=== PATIENT | female | born 1990 | race Caucasian/White ===

== ENCOUNTER 2016-08-20 21:29 | Emergency (ER) | payer OTHER ==
[~2016-08-20] VITALS: Ht 157.4 cm; Wt 100.2 kg
[~2016-08-20 21:29] MED LIST: ALBUTEROL2.5 MG/0.5 INH; ANAPROX DS550 MG PO; CLARITIN-D 12 H1 TAB PO; DUONEB 3 MG/3 ML3 M1 INH; MEDROL DOSEPAK4 MG PO; NKHM; PHENERGAN W/ DE30 ML PO; PREDNICOT10 MG PO; PREDNICOT20 MG PO; PREDNISONE10 MG PO; PROAIR HFA0.09 MG/AC INH; ROBITUSSIN AC 110 ML PO; VENTOLIN H0.09 MG/AC INH; VIBRAMYCIN100 MG PO; ZITHROMAX250 MG PO
[2016-08-20] MEDS ORDERED: PRENATAL1 TA3 PO (21:43)
[2016-08-20 22:23] LABS: BASO % 0.2 % (0.0-1.0); EOS # 0.3 10*3/uL (0.0-0.4); EOS % 2.3 % (1.0-4.0); HEMATOCRIT 31.5 % (37.0-47.0); HEMOGLOBIN 10.6 g/dl (12.0-16.0); IG # 0.1 10*3/uL (0.0-0.1); LYMPH # 2.2 10*3/uL (1.3-4.4); LYMPH % 19.1 % (27.0-41.0); MEAN CELL VOLUME 94.6 fl (81.0-99.0); MEAN CORPUSCULAR HGB 31.8 pg (27.0-31.0); MEAN CORPUSCULAR HGB CONC 33.7 g/dl (33.0-37.0); MEAN PLATELET VOLUME 11.8 fl (9.6-12.3); MONO # 0.6 10*3/uL (0.1-1.0); NEUT # 8.4 10*3/uL (2.3-7.9); PLATELET COUNT AUTOMATED 115 10*3/uL (130-400); RED BLOOD COUNT 3.33 10*6/uL (4.10-5.10); RED CELL DISTRI WIDTH 13.3 % (0-14.5); WHITE BLOOD COUNT 11.5 10*3/uL (4.8-10.8)
[2016-08-20 22:33] LABS: BUN 7 mg/dl (7-24); CARBON DIOXIDE 24 mmol/L (21-32); CHLORIDE 109 mmol/L (98-107); EST GLOM FILT AFRICAN AMERICAN > 60 ml/min; GLUCOSE 88 mg/dL (65-99); POTASSIUM 3.6 mmol/L (3.5-5.1); SODIUM 142 mmol/L (136-145)
[2016-08-20 22:46] LABS: BILIRUBIN NEGATIVE (NEGATIVE); BLOOD NEGATIVE (NEGATIVE); CLARITY SL CLOUDY (CLEAR); COLOR YELLOW (YELLOW); GLUCOSE NEGATIVE (NEGATIVE); KETONE TRACE (NEGATIVE); LEUKO ESTERASE 1+ (NEGATIVE); NITRITE NEGATIVE (NEGATIVE); PROTEIN TRACE (NEGATIVE); SPECIFIC GRAVITY 1.025 (1.005-1.030)
[2016-08-20] MEDS ORDERED: MACROBID100 M1 PO (22:54)
[2016-08-20 23:04] LABS: BACTERIA 1+; CALCIUM OXALATE CRYSTALS 1+; URINE REFLEX COMMENT YES (NO)
== END 2016-08-20 23:07 | disposition home or self-care (01) ==
LOC: ED 21:29
PROVIDERS: Student in an Organized Health Care Education/Training Program
DX: O23.42 Unspecified infection of urinary tract in pregnancy, second trimester (principal); R82.71 Bacteriuria; F17.200 Nicotine dependence, unspecified, uncomplicated; Z79.899 Other long term (current) drug therapy; Z3A.24 24 weeks gestation of pregnancy

== ENCOUNTER 2016-11-12 01:33 | Emergency (ER) | payer OTHER ==
[~2016-11-12] VITALS: Ht 157.4 cm; Wt 54.9 kg
[~2016-11-12 01:33] MED LIST changes: +MACROBID100 M1 PO; +PRENATAL1 TA3 PO
[2016-11-12] MEDS ORDERED: AMOXICILLIN500 M2 PO (01:58)
== END 2016-11-12 02:22 | disposition home or self-care (01) ==
LOC: ED 01:33
DX: J02.9 Acute pharyngitis, unspecified (principal); F17.200 Nicotine dependence, unspecified, uncomplicated

== ENCOUNTER 2016-12-28 02:02 | Emergency (ER) | payer OTHER ==
[~2016-12-28 02:02] MED LIST changes: +AMOXICILLIN500 M2 PO
[2016-12-28 02:48] LABS: BASO % 0.2 % (0.0-1.0); EOS # 0.3 10*3/uL (0.0-0.4); EOS % 2.8 % (1.0-4.0); HEMATOCRIT 36.3 % (37.0-47.0); HEMOGLOBIN 11.8 g/dl (12.0-16.0); LYMPH % 18.1 % (27.0-41.0); MEAN CELL VOLUME 92.8 fl (81.0-99.0); MEAN CORPUSCULAR HGB 30.2 pg (27.0-31.0); MEAN CORPUSCULAR HGB CONC 32.5 g/dl (33.0-37.0); MEAN PLATELET VOLUME 11.1 fl (9.6-12.3); MONO # 0.5 10*3/uL (0.1-1.0); MONO % 4.2 % (3.0-9.0); NEUT # 8.3 10*3/uL (2.3-7.9); NEUT % 74.3 % (47.0-73.0); PLATELET COUNT AUTOMATED 142 10*3/uL (130-400); RED BLOOD COUNT 3.91 10*6/uL (4.10-5.10); RED CELL DISTRI WIDTH 13.4 % (0-14.5); WHITE BLOOD COUNT 11.2 10*3/uL (4.8-10.8)
[2016-12-28 03:03] LABS: ALBUMIN 3.4 gm/dl (3.1-4.5); ALKALINE PHOSPHATASE 51 U/L (45-117); BUN 11 mg/dl (7-24); CHLORIDE 111 mmol/L (98-107); CREATININE 0.84 mg/dL (0.55-1.02); LIPASE 155 U/L (73-393); POTASSIUM 3.3 mmol/L (3.5-5.1); SGOT/AST 14 IU/L (3-35); SGPT/ALT 23 U/L (12-78); SODIUM 143 mmol/L (136-145); TOTAL PROTEIN 6.7 gm/dL (6.4-8.2)
[2016-12-28 03:06] LABS: ACT PARTIAL THROMBO TIME 23.9 SECONDS (20.8-31.5); TROPONIN I < 0.015 ng/ml (<0.045)
[2016-12-28] MEDS ORDERED: AVPAK AZITHROM250 M1 PO (03:16)
== END 2016-12-28 03:31 | disposition home or self-care (01) ==
LOC: ED 02:02
PROVIDERS: Student in an Organized Health Care Education/Training Program
DX: J06.9 Acute upper respiratory infection, unspecified (principal); F17.200 Nicotine dependence, unspecified, uncomplicated

== ENCOUNTER 2017-07-22 18:18 | Emergency (ER) | payer OTHER ==
[~2017-07-22] VITALS: Wt 106.6 kg
[~2017-07-22 18:18] MED LIST changes: +AVPAK AZITHROM250 M1 PO
[2017-07-22] MEDS ORDERED: AMOXICILLIN500 M2 PO (18:59)
[2017-07-22] MEDS ORDERED: PROAIR HFA8.5 GM INH (18:59)
[2017-07-22] MEDS ORDERED: ZYRTEC10 MG PO (18:59)
== END 2017-07-22 19:35 | disposition home or self-care (01) ==
LOC: ED 18:18
DX: J01.90 Acute sinusitis, unspecified (principal); J45.909 Unspecified asthma, uncomplicated; Z76.0 Encounter for issue of repeat prescription; Z79.899 Other long term (current) drug therapy

== ENCOUNTER 2019-01-16 19:17 | Emergency (ER) | payer OTHER ==
[~2019-01-16] VITALS: Ht 157.4 cm; Wt 108.9 kg
[~2019-01-16 19:17] MED LIST changes: +PROAIR HFA8.5 GM INH; +ZYRTEC10 MG PO
[2019-01-16] MEDS ORDERED: DELTASONE20 M1 PO (19:39)
[2019-01-16] MEDS ORDERED: PROVENTIL HFA6.7 GM INH (19:39)
[2019-01-16] MEDS ORDERED: Ipratropium Brom3 ML INH (19:39)
[2019-01-16] MEDS ORDERED: MUCINEX1200 M1 PO (19:39)
== END 2019-01-16 20:17 | disposition home or self-care (01) ==
LOC: ED 19:17
DX: J45.901 Unspecified asthma with (acute) exacerbation (principal); F17.200 Nicotine dependence, unspecified, uncomplicated

== ENCOUNTER 2019-09-29 05:52 | Emergency (ER) | payer OTHER ==
[~2019-09-29] VITALS: Ht 157.4 cm; Wt 113.4 kg
[~2019-09-29 05:52] MED LIST changes: +DELTASONE20 M1 PO; +Ipratropium Brom3 ML INH; +MUCINEX1200 M1 PO; +PROVENTIL HFA6.7 GM INH
[2019-09-29 06:36] LABS: BILIRUBIN NEGATIVE (NEGATIVE); BLOOD NEGATIVE (NEGATIVE); CLARITY SL CLOUDY (CLEAR); COLOR YELLOW (YELLOW); EPITHELIAL CELLS 21-30; GLUCOSE NEGATIVE (NEGATIVE); KETONE NEGATIVE (NEGATIVE); LEUKO ESTERASE NEGATIVE (NEGATIVE); NITRITE NEGATIVE (NEGATIVE); PH 6.5 (5.0-9.0); UROBILINOGEN 0.2 E.U./dl (0.2-1.0); WBC 16-20 wbc/hpf (0-5)
[2019-09-29 06:37] LABS: MUCOUS TRACE
[2019-09-29 06:51] LABS: BASO % 0.3 % (0.0-1.0); EOS # 0.3 10*3/uL (0.0-0.4); EOS % 4.4 % (1.0-4.0); LYMPH # 2.2 10*3/uL (1.3-4.4); LYMPH % 29.3 % (27.0-41.0); MEAN CORPUSCULAR HGB 32.7 pg (27.0-31.0); MEAN PLATELET VOLUME 11.1 fl (9.6-12.3); MONO # 0.4 10*3/uL (0.1-1.0); MONO % 5.6 % (3.0-9.0); NEUT # 4.5 10*3/uL (2.3-7.9); PLATELET COUNT AUTOMATED 132 10*3/uL (130-400); RED BLOOD COUNT 4.04 10*6/uL (4.10-5.10); RED CELL DISTRI WIDTH 12.8 % (0-14.5); WHITE BLOOD COUNT 7.5 10*3/uL (4.8-10.8)
[2019-09-29 07:03] LABS: ALBUMIN 3.3 gm/dl (3.1-4.5); ALKALINE PHOSPHATASE 46 U/L (45-117); BUN 15 mg/dl (7-24); CHLORIDE 108 mmol/L (98-107); CREATININE 0.76 mg/dL (0.55-1.02); SGOT/AST 20 IU/L (3-35); SGPT/ALT 43 U/L (12-78); SODIUM 139 mmol/L (136-145); TOTAL PROTEIN 6.3 gm/dL (6.4-8.2)
[2019-09-29] MEDS ORDERED: TYLENOL325 M1 PO (07:39)
[2019-09-29] MEDS ORDERED: NAPROSYN500 MG PO (07:39)
[2019-09-29] MEDS ORDERED: CYCLOBENZAPRINE10 MG PO (07:39)
== END 2019-09-29 07:41 | disposition home or self-care (01) ==
LOC: ED 05:52
PROVIDERS: Emergency Medicine
DX: M54.6 Pain in thoracic spine (principal); M25.511 Pain in right shoulder; M54.2 Cervicalgia; J45.909 Unspecified asthma, uncomplicated

== ENCOUNTER 2019-12-23 23:51 | Emergency (ER) | payer OTHER ==
[~2019-12-23] VITALS: Ht 157.5 cm; Wt 111.1 kg
[~2019-12-23 23:51] MED LIST changes: +CYCLOBENZAPRINE10 MG PO; +NAPROSYN500 MG PO; +TYLENOL325 M1 PO
[2019-12-24] MEDS ORDERED: Motrin,Rufen800 MG PO (01:33)
[2019-12-24] MEDS ORDERED: CYCLOBENZAPRINE5 M3 PO (01:33)
[2019-12-24] MEDS ORDERED: THIAMINE HCL100 MG PO (01:37)
== END 2019-12-24 01:49 | disposition home or self-care (01) ==
LOC: ED 23:51
DX: S23.3XXA Sprain of ligaments of thoracic spine, initial encounter (principal); S46.911A Strain of unspecified muscle, fascia and tendon at shoulder and upper arm level, right arm, initial encounter; J45.909 Unspecified asthma, uncomplicated; F17.200 Nicotine dependence, unspecified, uncomplicated; Z79.899 Other long term (current) drug therapy; Y93.89 Activity, other specified; X58.XXXA Exposure to other specified factors, initial encounter; Y92.89 Other specified places as the place of occurrence of the external cause; Y99.8 Other external cause status

== ENCOUNTER 2020-09-01 16:29 | Emergency (ER) | payer OTHER ==
[~2020-09-01] VITALS: Ht 157.4 cm; Wt 61.2 kg
[~2020-09-01 16:29] MED LIST changes: +CYCLOBENZAPRINE5 M3 PO; +Motrin,Rufen800 MG PO; +THIAMINE HCL100 MG PO
[2020-09-01 17:27] LABS: BILIRUBIN Negative (Negative); BLOOD Negative (Negative); CLARITY Cloudy (Clear); COLOR Yellow (Yellow); GLUCOSE Negative (Negative); KETONE Trace (Negative); LEUKO ESTERASE Negative (Negative); NITRITE Negative (Negative); PH 5.5 (4.5-8.0); SPECIFIC GRAVITY >= 1.030 (1.001-1.030)
[2020-09-01 17:36] LABS: BACTERIA 1+; EPITHELIAL CELLS 16-20; RBC 0-2 rbc/hpf (0-2); WBC 0-2 wbc/hpf (0-5)
[2020-09-01 17:37] LABS: YEAST TRACE
[2020-09-01 18:29] LABS: BASO % 0.2 % (0.0-1.0); EOS # 0.3 10*3/uL (0.0-0.4); EOS % 2.6 % (1.0-4.0); HEMATOCRIT 43.7 % (37.0-47.0); LYMPH # 2.3 10*3/uL (1.3-4.4); MEAN CELL VOLUME 97.3 fl (81.0-99.0); MEAN CORPUSCULAR HGB 30.7 pg (27.0-31.0); MEAN CORPUSCULAR HGB CONC 31.6 g/dl (33.0-37.0); MEAN PLATELET VOLUME 10.9 fl (9.6-12.3); MONO # 0.5 10*3/uL (0.1-1.0); MONO % 4.6 % (3.0-9.0); NEUT # 7.2 10*3/uL (2.3-7.9); NEUT % 70.4 % (47.0-73.0); PLATELET COUNT AUTOMATED 158 10*3/uL (130-400); RED BLOOD COUNT 4.49 10*6/uL (4.10-5.10); RED CELL DISTRI WIDTH 12.9 % (0-14.5); WHITE BLOOD COUNT 10.3 10*3/uL (4.8-10.8)
[2020-09-01 18:41] LABS: ALBUMIN 3.6 gm/dl (3.1-4.5); ALKALINE PHOSPHATASE 51 U/L (45-117); BUN 10 mg/dl (7-24); CHLORIDE 107 mmol/L (98-107); CREATININE 0.86 mg/dL (0.55-1.02); LIPASE 132 U/L (73-393); POTASSIUM 4.2 mmol/L (3.5-5.1); SGOT/AST 14 IU/L (3-35); SGPT/ALT 33 U/L (12-78); SODIUM 139 mmol/L (136-145); TOTAL PROTEIN 7.1 gm/dL (6.4-8.2)
[2020-09-01] MEDS ORDERED: ZOFRAN4 MG PO (20:47)
== END 2020-09-01 20:53 | disposition home or self-care (01) ==
LOC: ED 16:29
PROVIDERS: Emergency Medicine; Physician Assistant
DX: A08.4 Viral intestinal infection, unspecified (principal); F17.200 Nicotine dependence, unspecified, uncomplicated; Z79.899 Other long term (current) drug therapy

== ENCOUNTER 2020-11-20 10:18 | Emergency (ER) | payer OTHER ==
[~2020-11-20] VITALS: Ht 157.4 cm; Wt 113.4 kg
[~2020-11-20 10:18] MED LIST changes: +ZOFRAN4 MG PO
== END 2020-11-20 12:07 | disposition home or self-care (01) ==
LOC: ED 10:18
DX: G43.909 Migraine, unspecified, not intractable, without status migrainosus (principal); Z79.899 Other long term (current) drug therapy; Z79.2 Long term (current) use of antibiotics

== ENCOUNTER → 2021-01-08 | Outpatient (CLI) | payer OTHER | END | disposition home or self-care (01) | LOC: COVID19 16:15 | PROVIDERS: ATTEND Hospitalist | DX: Z11.52 Encounter for screening for COVID-19 (principal) ==

== ENCOUNTER 2021-01-18 12:08 | Emergency (ER) | payer OTHER ==
[~2021-01-18] VITALS: Ht 160 cm; Wt 111.1 kg
== END 2021-01-18 13:25 | disposition home or self-care (01) ==
LOC: ED 12:08
DX: J06.9 Acute upper respiratory infection, unspecified (principal)

== ENCOUNTER 2021-01-31 09:59 | Emergency (ER) | payer OTHER ==
[~2021-01-31] VITALS: Ht 157.4 cm; Wt 108.9 kg
[2021-01-31 14:32] LABS: BASO % 0.2 % (0.0-1.0); EOS # 0.4 10*3/uL (0.0-0.4); EOS % 4.3 % (1.0-4.0); HEMATOCRIT 41.9 % (37.0-47.0); LYMPH # 2.5 10*3/uL (1.3-4.4); LYMPH % 26.9 % (27.0-41.0); MEAN CELL VOLUME 95.7 fl (81.0-99.0); MEAN CORPUSCULAR HGB 30.8 pg (27.0-31.0); MEAN CORPUSCULAR HGB CONC 32.2 g/dl (33.0-37.0); MEAN PLATELET VOLUME 11.3 fl (9.6-12.3); MONO # 0.5 10*3/uL (0.1-1.0); NEUT # 5.8 10*3/uL (2.3-7.9); NEUT % 63.4 % (47.0-73.0); PLATELET COUNT AUTOMATED 174 10*3/uL (130-400); RED BLOOD COUNT 4.38 10*6/uL (4.10-5.10); RED CELL DISTRI WIDTH 12.7 % (0-14.5); WHITE BLOOD COUNT 9.2 10*3/uL (4.8-10.8)
[2021-01-31 14:47] LABS: ALBUMIN 3.7 gm/dl (3.1-4.5); ALKALINE PHOSPHATASE 53 U/L (45-117); BUN 10 mg/dl (7-24); CHLORIDE 108 mmol/L (98-107); LIPASE 134 U/L (73-393); POTASSIUM 4.2 mmol/L (3.5-5.1); SGOT/AST 14 IU/L (3-35); SGPT/ALT 26 U/L (12-78); SODIUM 139 mmol/L (136-145); TOTAL PROTEIN 7.3 gm/dL (6.4-8.2)
[2021-01-31 14:51] LABS: BETA-HCG, QUANT < 1.0 mIU/mL (1-3)
== END 2021-01-31 14:53 | disposition home or self-care (01) ==
LOC: ED 09:59
PROVIDERS: Student in an Organized Health Care Education/Training Program
DX: R10.12 Left upper quadrant pain (principal)

== ENCOUNTER 2021-09-22 15:44 | Emergency (ER) | payer OTHER ==
[2021-09-22 16:30] LABS: BASO % 0.2 % (0.0-1.0); EOS # 0.4 10*3/uL (0.0-0.4); EOS % 6.4 % (1.0-4.0); LYMPH # 1.3 10*3/uL (1.3-4.4); LYMPH % 23.7 % (27.0-41.0); MEAN CORPUSCULAR HGB 31.9 pg (27.0-31.0); MEAN CORPUSCULAR HGB CONC 32.5 g/dl (33.0-37.0); MEAN PLATELET VOLUME 11.1 fl (9.6-12.3); MONO # 0.4 10*3/uL (0.1-1.0); MONO % 6.7 % (3.0-9.0); NEUT # 3.6 10*3/uL (2.3-7.9); NEUT % 62.8 % (47.0-73.0); PLATELET COUNT AUTOMATED 132 10*3/uL (130-400); RED BLOOD COUNT 4.08 10*6/uL (4.10-5.10); RED CELL DISTRI WIDTH 12.1 % (0-14.5); WHITE BLOOD COUNT 5.7 10*3/uL (4.8-10.8)
[2021-09-22 16:47] LABS: ALKALINE PHOSPHATASE 50 U/L (45-117); BUN 11 mg/dl (7-24); CHLORIDE 107 mmol/L (98-107); CREATININE 0.94 mg/dL (0.55-1.02); POTASSIUM 3.6 mmol/L (3.5-5.1); SGOT/AST 16 IU/L (3-35); SGPT/ALT 34 U/L (12-78); SODIUM 140 mmol/L (136-145); TOTAL PROTEIN 6.3 gm/dL (6.4-8.2)
[2021-09-22] MEDS ORDERED: PREDNISONE20 M1 PO (20:11)
[2021-09-22] MEDS ORDERED: ZITHROMAX250 MG PO (20:11)
== END 2021-09-22 20:03 | disposition home or self-care (01) ==
LOC: ED 15:44
PROVIDERS: Physician Assistant
DX: J06.9 Acute upper respiratory infection, unspecified (principal); J45.901 Unspecified asthma with (acute) exacerbation

== ENCOUNTER 2022-04-12 12:13 | Emergency (ER) | payer OTHER ==
[~2022-04-12 12:13] MED LIST changes: +PREDNISONE20 M1 PO
== END 2022-04-12 17:12 | disposition left against medical advice (07) ==
LOC: ED 12:13
DX: Z53.21 Procedure and treatment not carried out due to patient leaving prior to being seen by health care provider (principal)

== ENCOUNTER 2022-10-17 17:37 | Emergency (ER) | payer OTHER ==
[~2022-10-17] VITALS: Ht 157.4 cm; Wt 108.9 kg
[2022-10-17] MEDS ORDERED: Motrin,Rufen800 MG PO (18:08)
[2022-10-17] MEDS ORDERED: AMOX-CLAV 875-1 EACH PO (18:08)
== END 2022-10-17 18:18 | disposition home or self-care (01) ==
LOC: ED 17:37
DX: K08.89 Other specified disorders of teeth and supporting structures (principal); J02.9 Acute pharyngitis, unspecified; Z79.899 Other long term (current) drug therapy; Z79.2 Long term (current) use of antibiotics

== ENCOUNTER 2023-01-26 13:08 | Inpatient (IN) | payer OTHER ==
[~2023-01-26] VITALS: Ht 157.5 cm; Wt 113.0 kg
[~2023-01-26 13:08] MED LIST changes: +AMOX-CLAV 875-1 EACH PO; +PREDNISONE50 MG PO; +VENTOLIN 02.5 MG/3 M NEB
[2023-01-26 13:26] VITALS: BP 142/90
[2023-01-26 14:12] LABS: BASO % 0.1 % (0.0-1.0); EOS % 0.2 % (1.0-4.0); HEMATOCRIT 40.3 % (37.0-47.0); LYMPH # 0.9 10*3/uL (1.3-4.4); MEAN CELL VOLUME 98.1 fl (81.0-99.0); MEAN CORPUSCULAR HGB 32.1 pg (27.0-31.0); MEAN CORPUSCULAR HGB CONC 32.8 g/dl (33.0-37.0); MEAN PLATELET VOLUME 10.5 fl (9.6-12.3); MONO # 0.5 10*3/uL (0.1-1.0); MONO % 3.8 % (3.0-9.0); NEUT # 11.2 10*3/uL (2.3-7.9); NEUT % 88.4 % (47.0-73.0); PLATELET COUNT AUTOMATED 151 10*3/uL (130-400); RED BLOOD COUNT 4.11 10*6/uL (4.10-5.10); RED CELL DISTRI WIDTH 13.7 % (0-14.5); WHITE BLOOD COUNT 12.7 10*3/uL (4.8-10.8)
[2023-01-26 14:25] LABS: ACT PARTIAL THROMBO TIME 25.5 SECONDS (20.0-32.1); INTERNATIONAL NORM RATIO 0.9 (2.0-3.5)
[2023-01-26 14:35] LABS: ALKALINE PHOSPHATASE 51 U/L (46-116); BUN 8 mg/dl (9-23); CHLORIDE 107 mmol/L (98-107); LIPASE 34 U/L (12-53); POTASSIUM 3.3 mmol/L (3.4-5.1); SGPT/ALT 21 U/L (10-49); TOTAL PROTEIN 6.5 gm/dL (6.0-8.0)
[2023-01-26 14:36] LABS: BETA-HCG, QUANT < 3.0 mIU/mL (3-10)
[2023-01-26 17:09] VITALS: BP 130/82
[2023-01-26 20:18] VITALS: BP 156/90
[2023-01-26 21:39] VITALS: BP 139/67
[2023-01-27 02:46] VITALS: BP 149/82
[2023-01-27 06:24] LABS: BASO % 0.1 % (0.0-1.0); HEMATOCRIT 38.7 % (37.0-47.0); LYMPH # 1.3 10*3/uL (1.3-4.4); LYMPH % 10.2 % (27.0-41.0); MONO # 0.7 10*3/uL (0.1-1.0); MONO % 5.7 % (3.0-9.0); NEUT # 10.2 10*3/uL (2.3-7.9); NEUT % 83.6 % (47.0-73.0); PLATELET COUNT AUTOMATED 162 10*3/uL (130-400); RED BLOOD COUNT 3.87 10*6/uL (4.10-5.10); RED CELL DISTRI WIDTH 13.7 % (0-14.5); WHITE BLOOD COUNT 12.2 10*3/uL (4.8-10.8)
[2023-01-27 06:33] LABS: ACT PARTIAL THROMBO TIME 28.1 SECONDS (20.0-32.1)
[2023-01-27 06:44] VITALS: BP 144/84
[2023-01-27 06:46] LABS: ALKALINE PHOSPHATASE 47 U/L (46-116); BUN 6 mg/dl (9-23); CHLORIDE 106 mmol/L (98-107); CHOLESTEROL 130 mg/dL (<200); FREE T4 0.91 ng/dl (0.89-1.76); LDL CHOLESTEROL 46 mg/dL (9-159); SGPT/ALT 21 U/L (10-49); TOTAL PROTEIN 6.3 gm/dL (6.0-8.0); TRIGLYCERIDES 44 mg/dl (<150)
[2023-01-27 06:59] LABS: POTASSIUM 4.5 mmol/L (3.4-5.1)
[2023-01-27 08:00] VITALS: BP 139/76
[2023-01-27 12:00] VITALS: BP 161/91
[2023-01-28] VITALS: BP 159/99
[2023-01-28 07:17] LABS: BASO % 0.1 % (0.0-1.0); EOS # 0.1 10*3/uL (0.0-0.4); EOS % 0.7 % (1.0-4.0); HEMATOCRIT 38.7 % (37.0-47.0); LYMPH % 25.5 % (27.0-41.0); MEAN CELL VOLUME 101.3 fl (81.0-99.0); MEAN CORPUSCULAR HGB 31.4 pg (27.0-31.0); MEAN PLATELET VOLUME 10.9 fl (9.6-12.3); MONO # 0.7 10*3/uL (0.1-1.0); MONO % 6.4 % (3.0-9.0); NEUT # 7.8 10*3/uL (2.3-7.9); NEUT % 66.7 % (47.0-73.0); PLATELET COUNT AUTOMATED 148 10*3/uL (130-400); RED BLOOD COUNT 3.82 10*6/uL (4.10-5.10); RED CELL DISTRI WIDTH 13.5 % (0-14.5); WHITE BLOOD COUNT 11.6 10*3/uL (4.8-10.8)
[2023-01-28 07:37] LABS: BUN 5 mg/dl (9-23); CHLORIDE 108 mmol/L (98-107); POTASSIUM 4.3 mmol/L (3.4-5.1)
[2023-01-28 08:00] VITALS: BP 154/97
[2023-01-28 12:00] VITALS: BP 151/96
[2023-01-28 16:00] VITALS: BP 155/98
[2023-01-28 20:00] VITALS: BP 158/85
[2023-01-29] VITALS: BP 137/81
[2023-01-29 07:27] LABS: BASO % 0.2 % (0.0-1.0); EOS % 0.3 % (1.0-4.0); HEMATOCRIT 36.7 % (37.0-47.0); LYMPH # 2.7 10*3/uL (1.3-4.4); LYMPH % 25.6 % (27.0-41.0); MEAN CELL VOLUME 101.9 fl (81.0-99.0); MEAN CORPUSCULAR HGB 31.9 pg (27.0-31.0); MEAN CORPUSCULAR HGB CONC 31.3 g/dl (33.0-37.0); MEAN PLATELET VOLUME 10.6 fl (9.6-12.3); MONO # 0.7 10*3/uL (0.1-1.0); MONO % 6.6 % (3.0-9.0); NEUT # 7.1 10*3/uL (2.3-7.9); NEUT % 66.7 % (47.0-73.0); PLATELET COUNT AUTOMATED 152 10*3/uL (130-400); RED CELL DISTRI WIDTH 13.3 % (0-14.5); WHITE BLOOD COUNT 10.6 10*3/uL (4.8-10.8)
[2023-01-29 07:55] LABS: BUN 8 mg/dl (9-23); CHLORIDE 106 mmol/L (98-107); POTASSIUM 4.2 mmol/L (3.4-5.1)
[2023-01-29 08:00] VITALS: BP 169/91
[2023-01-29 12:00] VITALS: BP 160/84
[2023-01-29 16:00] VITALS: BP 156/91
[2023-01-29 20:00] VITALS: BP 169/103
[2023-01-30] VITALS: BP 173/94
[2023-01-30 07:15] LABS: BASO % 0.1 % (0.0-1.0); EOS % 0.2 % (1.0-4.0); HEMATOCRIT 37.9 % (37.0-47.0); LYMPH # 2.6 10*3/uL (1.3-4.4); LYMPH % 23.2 % (27.0-41.0); MEAN CELL VOLUME 101.1 fl (81.0-99.0); MEAN CORPUSCULAR HGB 32.3 pg (27.0-31.0); MEAN CORPUSCULAR HGB CONC 31.9 g/dl (33.0-37.0); MEAN PLATELET VOLUME 10.4 fl (9.6-12.3); MONO # 0.6 10*3/uL (0.1-1.0); MONO % 5.7 % (3.0-9.0); NEUT # 7.7 10*3/uL (2.3-7.9); NEUT % 69.6 % (47.0-73.0); PLATELET COUNT AUTOMATED 176 10*3/uL (130-400); RED BLOOD COUNT 3.75 10*6/uL (4.10-5.10); RED CELL DISTRI WIDTH 13.3 % (0-14.5); WHITE BLOOD COUNT 11.1 10*3/uL (4.8-10.8)
[2023-01-30 08:00] VITALS: BP 161/88
[2023-01-30 08:00] LABS: BUN 7 mg/dl (9-23); CHLORIDE 103 mmol/L (98-107); POTASSIUM 4.4 mmol/L (3.4-5.1)
[2023-01-30 08:50] VITALS: BP 164/98
[2023-01-30] MEDS ORDERED: MEDROL8 MG PO (11:32)
[2023-01-30] MEDS ORDERED: NICODERM T (11:32)
[2023-01-30] MEDS ORDERED: ADVAIR 250/501 EA INH (11:32)
[2023-01-30] MEDS ORDERED: MUCUS RELIEF600 MG PO (11:32)
[2023-01-30] MEDS ORDERED: ZITHROMAX250 MG PO (11:32)
[2023-01-30] MEDS ORDERED: PROVENTIL HFA6.7 GM INH (11:32)
[2023-01-30] MEDS ORDERED: VENTOLIN 02.5 MG/3 M INH (11:32)
[2023-01-30] MEDS ORDERED: NEBULIZER1 EACH MC (11:32)
[2023-01-30] MEDS ORDERED: NICODERM CQ1 EAC2 T (11:34)
[2023-01-30] MEDS ORDERED: HYDROXYZINE HCL25 MG PO (12:24)
[2023-01-31] MEDS ORDERED: TRAZODONE50 MG PO (14:49)
[2023-01-31] MEDS ORDERED: IPRATROPIU0.2 MG/1 M INH (14:49)
== END 2023-01-30 13:00 | disposition home or self-care (01) | DRG 871 ==
LOC: ED 13:08 → EDHOLD 16:10 → 4E 16:10 → EDHOLD 01-27 15:11 → 4E 01-27 17:18
PROVIDERS: Emergency Medicine; Family Medicine; Internal Medicine; Student in an Organized Health Care Education/Training Program; ADMIT Internal Medicine; ATTEND Internal Medicine
DX: A41.9 Sepsis, unspecified organism (principal); J18.9 Pneumonia, unspecified organism; J96.01 Acute respiratory failure with hypoxia; J45.41 Moderate persistent asthma with (acute) exacerbation; R65.20 Severe sepsis without septic shock; E87.6 Hypokalemia; R73.9 Hyperglycemia, unspecified; I10 Essential (primary) hypertension; F17.210 Nicotine dependence, cigarettes, uncomplicated; R21 Rash and other nonspecific skin eruption; Z98.891 History of uterine scar from previous surgery

== ENCOUNTER 2023-01-31 13:21 | Emergency (ER) | payer OTHER ==
[~2023-01-31] VITALS: Wt 113.4 kg
[~2023-01-31 13:21] MED LIST changes: +ADVAIR 250/501 EA INH; +HYDROXYZINE HCL25 MG PO; +MEDROL8 MG PO; +MUCUS RELIEF600 MG PO; +NEBULIZER1 EACH MC; +NICODERM CQ1 EAC2 T; +NICODERM T; +VENTOLIN 02.5 MG/3 M INH
[2023-01-31 14:02] LABS: BASO % 0.2 % (0.0-1.0); EOS # 0.3 10*3/uL (0.0-0.4); EOS % 2.9 % (1.0-4.0); HEMATOCRIT 39.1 % (37.0-47.0); LYMPH # 2.8 10*3/uL (1.3-4.4); LYMPH % 23.9 % (27.0-41.0); MEAN CELL VOLUME 99.2 fl (81.0-99.0); MEAN CORPUSCULAR HGB 32.2 pg (27.0-31.0); MEAN CORPUSCULAR HGB CONC 32.5 g/dl (33.0-37.0); MEAN PLATELET VOLUME 9.9 fl (9.6-12.3); MONO # 0.8 10*3/uL (0.1-1.0); MONO % 6.9 % (3.0-9.0); NEUT # 7.5 10*3/uL (2.3-7.9); NEUT % 64.6 % (47.0-73.0); PLATELET COUNT AUTOMATED 182 10*3/uL (130-400); RED BLOOD COUNT 3.94 10*6/uL (4.10-5.10); RED CELL DISTRI WIDTH 13.2 % (0-14.5); WHITE BLOOD COUNT 11.6 10*3/uL (4.8-10.8)
[2023-01-31 14:23] LABS: ALKALINE PHOSPHATASE 45 U/L (46-116); BUN 14 mg/dl (9-23); CHLORIDE 103 mmol/L (98-107); POTASSIUM 3.6 mmol/L (3.4-5.1); SGPT/ALT 85 U/L (10-49); TOTAL PROTEIN 6.3 gm/dL (6.0-8.0)
[2023-01-31] MEDS ORDERED: IPRATROPIU0.2 MG/1 M INH (14:49)
[2023-01-31] MEDS ORDERED: TRAZODONE50 MG PO (14:49)
== END 2023-01-31 15:28 | disposition home or self-care (01) ==
LOC: ED 13:21
PROVIDERS: Emergency Medicine
DX: J45.901 Unspecified asthma with (acute) exacerbation (principal); G47.00 Insomnia, unspecified; Z98.890 Other specified postprocedural states; F17.210 Nicotine dependence, cigarettes, uncomplicated

== ENCOUNTER 2023-09-14 11:43 | Emergency (ER) | payer OTHER ==
[~2023-09-14] VITALS: Ht 157.4 cm; Wt 113.4 kg
[~2023-09-14 11:43] MED LIST changes: +IPRATROPIU0.2 MG/1 M INH; +TRAZODONE50 MG PO
[2023-09-14] MEDS ORDERED: ACETAMINOPHEN 325 MG TAB PO ONE (12:35)
[2023-09-14] MEDS ORDERED: MELOXICAM15 MG PO (15:46)
== END 2023-09-14 16:08 | disposition home or self-care (01) ==
LOC: ED 11:43
DX: M25.562 Pain in left knee (principal); J45.909 Unspecified asthma, uncomplicated; F17.210 Nicotine dependence, cigarettes, uncomplicated; Z98.890 Other specified postprocedural states

== ENCOUNTER 2024-06-25 20:02 | Emergency (ER) | payer OTHER ==
[~2024-06-25] VITALS: Ht 157.4 cm; Wt 104.3 kg
[~2024-06-25 20:02] MED LIST changes: +MELOXICAM15 MG PO
[2024-06-25] MEDS ORDERED: Albuterol Sulf/Ipratropium 3 ML VIAL NEB ONE (22:05)
[2024-06-25] MEDS ORDERED: Dexamethasone Sodium Phospha 20 MG/5 ML VIAL IM ONE (22:45)
[2024-06-25] MEDS ORDERED: MEDROL DOSEPAK4 MG PO (23:01)
[2024-06-25] MEDS ORDERED: AMOX-CLAV 875-1 EACH PO (23:01)
[2024-06-25] MEDS ORDERED: VENT7GM INH (23:01)
[2024-06-25] MEDS ORDERED: ALBUTEROL2.5 MG/0.5 INH (23:01)
== END 2024-06-25 23:27 | disposition home or self-care (01) ==
LOC: ED 20:02
DX: J45.901 Unspecified asthma with (acute) exacerbation (principal); F17.200 Nicotine dependence, unspecified, uncomplicated; Z79.899 Other long term (current) drug therapy; Z20.822 Contact with and (suspected) exposure to COVID-19

== ENCOUNTER 2025-01-08 03:24 | Emergency (ER) | payer OTHER ==
[~2025-01-08] VITALS: Ht 157.4 cm; Wt 104.3 kg
[~2025-01-08 03:24] MED LIST changes: +VENT7GM INH
[2025-01-08] MEDS ORDERED: Albuterol Sulf/Ipratropium 3 ML VIAL NEB ONE ×2 (03:40→04:00)
[2025-01-08] MEDS ORDERED: VENTOLIN 02.5 MG/3 M INH (05:14)
[2025-01-08] MEDS ORDERED: PREDNISONE50 MG PO (05:14)
[2025-01-08] MEDS ORDERED: ALBUTEROL 8 GM INHALER INH ONE (05:15)
== END 2025-01-08 05:36 | disposition home or self-care (01) ==
LOC: ED 03:24
DX: J45.901 Unspecified asthma with (acute) exacerbation (principal); F17.210 Nicotine dependence, cigarettes, uncomplicated; Z79.899 Other long term (current) drug therapy; Z98.890 Other specified postprocedural states